=== PATIENT | female | born 1965 | race Caucasian/White ===

== ENCOUNTER 2016-12-09 08:19 | Inpatient (IN) | payer OTHER ==
[~2016-12-09] VITALS: Ht 160 cm; Wt 91.4 kg
[~2016-12-09 08:19] MED LIST: ADVIL200 MG PO; AMARYL2 MG PO; AMARYL4 MG PO; ASPIRIN EC325 MG PO; ATIVAN0.5 MG PO; ATIVAN1 MG PO; ATIVAN2 MG PO; Amaryl PO; Ativan PO; BENZONATATE100 MG PO; CLARITIN-D 21 TABLET PO; DEPRESSION MED; ELAVIL25 MG PO; Ecotrin PO; FLEXERIL5 MG PO; FLONASE16 G1 BOTH NARES; FOLIC ACID0.4 MG PO; IBUPROFEN400 MG PO; IRON325 M1 PO; JANUVIA100 MG PO; KEFLEX500 MG PO; LEVEMIR FL100 UNIT/1 SC; LEVEMIR100 UNIT/2 SC; LEXAPRO10 MG PO; LEXAPRO20 MG PO; LISINOPRIL10 MG PO; LISINOPRIL2.5 MG PO; LORAZEPAM1 MG; LORAZEPAM2 MG PO; MECLIZINE HCL25 MG PO; METFORMIN; NAPROSYN500 MG PO; NEURONTIN300 MG PO; NORCO 5/3251 TABLET PO; NOVOLOG PE100 UNITS/ SC; PROTONIX40 MG PO; Protonix PO; TRAMADOL HCL50 MG PO; TYLENOL REGULA325 MG PO
[2016-12-09] MEDS ORDERED: BACLOFEN10 MG PO ×3 (08:47→13:20)
[2016-12-09] MEDS ORDERED: INDERAL20 MG PO (08:47)
[2016-12-09 09:52] LABS: HEMATOCRIT 31.1 % (36.0-46.0); MCH 30.5 PG (29.0-34.0); MCHC 34.4 G/DL (30.0-36.0); MEAN PLAT.VOLUME 10.7 uM^3 (9.5-12.4); PLATELET COUNT 82 K/uL (156-360); RBC DIS.WIDTH-CV 16.2 % (11.8-14.6); RBC DIS.WIDTH-SD 51.2 % (39-53); RED BLOOD COUNT 3.51 M/uL (3.80-5.20); WHITE BLOOD COUNT 3.5 K/uL (4.1-10.2)
[2016-12-09 09:53] LABS: EOSINOPHIL (%) 1.1 % (0-5); IMMATURE GRANULOCYTE (%) 0.3 % (0.0-0.7); IMMATURE GRANULOCYTE COUNT 0.1 K/uL; LYMPHOCYTE COUNT 0.9 K/uL (1.0-2.8); MONOCYTE (%) 5.2 % (3-12); MONOCYTE COUNT 0.2 K/uL (0-0.8); NEUTROPHIL (%) 66.7 % (45-76); NEUTROPHIL COUNT 2.3 K/uL (1.8-6.4)
[2016-12-09 10:09] LABS: CHLORIDE 110 mEq/L (99-109); POTASSIUM 3.7 mEq/L (3.7-5.4); SODIUM 144 mEq/L (136-147)
[2016-12-09 10:12] LABS: GLUCOSE 106 mg/dL (70-99)
[2016-12-09 10:13] LABS: ANION GAP 7 MEQ/L (2-14); TOTAL BILIRUBIN 2.8 mg/dL (0.0-1.0)
[2016-12-09 10:14] LABS: SERUM ETHYL ALCOHOL < 10 mg/dL
[2016-12-09 10:15] LABS: ALKALINE PHOSPHATASE 52 IU/L (3-129); GFR ESTIMATE (CALCULATED) > 59 mL/min/; MCV 88.6 FL (83-99)
[2016-12-09 10:15] LABS: ADD MEDTOX COMMENT Y; AMPHETAMINE NEGATIVE (500 ng/mL); BARBITURATES NEGATIVE (200 ng/mL); BENZODIAZEPINES PRESUMPTIVE POSITIVE (150 ng/mL); COCAINE NEGATIVE (150 ng/mL); INTERNAL CONTROLS VALID? YES; METHADONE NEGATIVE (200 ng/mL); METHAMPHETAMINE NEGATIVE (500 ng/mL); OPIATES (MORPHINE) NEGATIVE (100 ng/mL); OXYCODONE NEGATIVE (100 ng/mL); PHENCYCLIDINE NEGATIVE (25 ng/mL); PROPOXYPHENE NEGATIVE (300 ng/mL); THC CANNABINOIDS NEGATIVE (50 ng/mL); TRICYCLIC ANTIDEPRESSANTS NEGATIVE (300 ng/mL)
[2016-12-09 10:16] LABS: UREA NITROGEN (BUN) 11 mg/dL (9-23)
[2016-12-09 11:23] LABS: BENZODIAZEPINES QUANT VALUE 0 NG/ML
[2016-12-09 11:24] VITALS: BP 195/98
[2016-12-09 11:26] LABS: BENZODIAZEPINES, URINE SCREEN Negative (200 ng/mL)
[2016-12-09 12:41] VITALS: BP 195/98
[2016-12-09 15:21] VITALS: BP 141/80
[2016-12-09 20:58] LABS: POINT-OF-CARE METER ID UU13113830; POINT-OF-CARE USER ID BHSSMG
[2016-12-10 06:25] LABS: POINT-OF-CARE METER ID UU13113830
[2016-12-10 07:54] VITALS: BP 184/73
[2016-12-10 16:03] VITALS: BP 182/81
[2016-12-10 17:03] LABS: POINT-OF-CARE METER ID UU13113830; POINT-OF-CARE USER ID BHSMEW
[2016-12-10 20:46] LABS: POINT-OF-CARE METER ID UU13113830; POINT-OF-CARE USER ID BHSMEW
[2016-12-11 06:23] LABS: POINT-OF-CARE METER ID UU13113830
[2016-12-11 07:42] VITALS: BP 184/84
[2016-12-11 11:46] LABS: POINT-OF-CARE METER ID UU13113830
[2016-12-11 11:47] VITALS: BP 177/77
[2016-12-11 15:31] VITALS: BP 144/73
[2016-12-11 16:31] LABS: POINT-OF-CARE METER ID UU13113830; POINT-OF-CARE USER ID BHSLRM
[2016-12-11 21:12] LABS: POINT-OF-CARE METER ID UU13113830; POINT-OF-CARE USER ID BHSLRM
[2016-12-12 06:21] LABS: POINT-OF-CARE METER ID UU13113830; POINT-OF-CARE USER ID BHSSMG
[2016-12-12 07:43] VITALS: BP 190/90
[2016-12-12 12:23] LABS: POINT-OF-CARE METER ID UU13113830; POINT-OF-CARE USER ID BHSTSA
[2016-12-12 15:31] VITALS: BP 185/90
[2016-12-12 17:32] LABS: POINT-OF-CARE METER ID UU13113830; POINT-OF-CARE USER ID BHSTSA
[2016-12-12 21:19] LABS: POINT-OF-CARE METER ID UU13113830
[2016-12-13 06:14] LABS: POINT-OF-CARE METER ID UU13113830; POINT-OF-CARE USER ID ENVTLS63
[2016-12-13 07:53] VITALS: BP 181/96
[2016-12-13 15:33] VITALS: BP 170/79
[2016-12-13 21:25] VITALS: BP 191/81
[2016-12-13 21:25] LABS: POINT-OF-CARE METER ID UU13113830; POINT-OF-CARE USER ID ENVTLS63
[2016-12-14 06:27] LABS: POINT-OF-CARE METER ID UU13113830; POINT-OF-CARE USER ID ENVTLS63
[2016-12-14 07:45] VITALS: BP 162/78
[2016-12-14] MEDS ORDERED: BUSPAR5 MG PO (09:38)
[2016-12-14 11:51] LABS: POINT-OF-CARE METER ID UU13113830
== END 2016-12-14 12:45 | disposition home or self-care (01) | DRG 885 ==
LOC: EME 08:19 → EDOF 09:45 → 1WEST 09:45
PROVIDERS: Emergency Medicine; Psychiatry & Neurology Psychiatry
DX: F32.3 Major depressive disorder, single episode, severe with psychotic features (principal); R45.851 Suicidal ideations; F60.9 Personality disorder, unspecified; F41.9 Anxiety disorder, unspecified; I25.10 Atherosclerotic heart disease of native coronary artery without angina pectoris; I25.2 Old myocardial infarction; I10 Essential (primary) hypertension; E11.43 Type 2 diabetes mellitus with diabetic autonomic (poly)neuropathy; E78.5 Hyperlipidemia, unspecified; G89.29 Other chronic pain; Z79.4 Long term (current) use of insulin; K21.9 Gastro-esophageal reflux disease without esophagitis; E66.9 Obesity, unspecified; Z68.35 Body mass index [BMI] 35.0-35.9, adult
CPT/HCPCS: 36415; 80048; 80053; 82043; 82570; 82948; 83036; 84999; 85025; 90839; 97150 GO; 97167 GO; 97530 GO; 99281; 99284; G0480; J1815; Q0177